=== PATIENT | female | born 1990 | race Caucasian/White ===

== ENCOUNTER 2019-08-30 10:42 | Outpatient (CLI) | payer BC ==
[2019-08-30] MEDS ORDERED: ALPR0.25 PO (11:00)
[2019-08-30 11:36] LABS: BASOPHILS # (AUTO) 0.03 x10^3/uL (0-0.1); BASOPHILS % (AUTO) 0 % (0-1); EOSINOPHILS # (AUTO) 0.08 x10^3/uL (0-0.4); EOSINOPHILS % (AUTO) 1 % (1-7); LYMPHOCYTES # (AUTO) 2.17 x10^3/uL (1-3.4); LYMPHOCYTES % (AUTO) 23 % (22-44); MD NO; MEAN CORPUSCULAR HEMOGLOBIN 28.4 pg (27.0-34.8); MEAN CORPUSCULAR VOLUME 88.7 fL (80-100); MEAN PLATELET VOLUME 8.3 fL (7.4-10.4); MONOCYTES # (AUTO) 0.58 x10^3/uL (0.2-0.8); MONOCYTES % (AUTO) 6 % (2-9); NEUTROPHILS # (AUTO) 6.47 x10^3/uL (1.8-6.8); NEUTROPHILS % (AUTO) 69 % (42-75); PLATELET COUNT 325 x10^3/uL (130-400); RED BLOOD COUNT 4.68 x10^6/uL (3.82-5.3)
[2019-08-30 11:48] LABS: INTERNATIONAL NORMALIZED RATIO 0.94 (0.93-1.1)
[2019-08-30 13:10] LABS: ALBUMIN 3.8 g/dL (3.4-5.0); ANION GAP 4 mmol/L (5-15); CHLORIDE 110 mmol/L (98-107)
[2019-08-30 13:14] LABS: ALANINE AMINOTRANSFERASE 17 U/L (12-78); ALKALINE PHOSPHATASE 84 U/L (45-117); BILIRUBIN,TOTAL 0.3 mg/dL (0.2-1.0); CREATININE 0.88 mg/dL (0.55-1.02); TOTAL PROTEIN 7.9 g/dL (6.4-8.2)
== END 2019-08-30 23:59 | disposition home or self-care (01) ==
LOC: STAR 10:42
PROVIDERS: ATTEND Neurological Surgery
DX: Z01.818 Encounter for other preprocedural examination (principal); D35.2 Benign neoplasm of pituitary gland
CPT/HCPCS: 36415; 80053; 85025; 85610; 85730; 93005

== ENCOUNTER 2019-09-08 05:39 | Inpatient (IN) | payer BC ==
[~2019-09-08] VITALS: Ht 157.5 cm; Wt 92.7 kg
[~2019-09-08 05:39] MED LIST: ALPR0.25 PO
[2019-09-08] MEDS ORDERED: LACTATED RINGERS 1,000 ML IV SCH (06:05)
[2019-09-08 06:08] VITALS: BP 114/82
[2019-09-08] MEDS ORDERED: FENTANYL PF 250 MCG/5ML ONE ×3 (06:09→08:57)
[2019-09-08] MEDS ORDERED: PROPOFOL 100 ML ONE (06:12)
[2019-09-08] MEDS ORDERED: morphine SULFATE 10 MG/ML, 1ML IVPush PRN (06:30)
[2019-09-08] MEDS ORDERED: hydrALAzine 20 MG/ML, 1ML IV PRN (06:30)
[2019-09-08] MEDS ORDERED: HALOPERIDOL 5 MG/ML IV PRN (06:30)
[2019-09-08] MEDS ORDERED: MEPERIDINE/PF 25MG/0.5ML IVPush PRN (06:30)
[2019-09-08] MEDS ORDERED: HYDROmorphone 1 MG/ML, 1ML INJ IVPush PRN (06:30)
[2019-09-08] MEDS ORDERED: PROMETHAZINE 25 MG/ML, 1ML IVPush PRN (06:30)
[2019-09-08] MEDS ORDERED: LABETALOL 5MG/ML, 20ML IV PRN (06:30)
[2019-09-08] MEDS ORDERED: CHLORHEXIDINE 15 ML UDC MM ONE (06:30)
[2019-09-08] MEDS ORDERED: OXYcodone 5 MG/5 ML ORAL.SOL UDC PO PRN (06:30)
[2019-09-08 06:33] LABS: HCG UR SG 1.027 (1.003-1.030)
[2019-09-08] MEDS ORDERED: FUROSEMIDE 20 MG/2 ML ONE (06:39)
[2019-09-08] MEDS ORDERED: MANNITOL PMX 20% 500 ML ONE (06:39)
[2019-09-08] MEDS ORDERED: GADOTERATE 7.5 MMOL/15 ML SYR ONE (06:54)
[2019-09-08] MEDS ORDERED: BACITRACIN 50,000 UNIT ONE (07:33)
[2019-09-08] MEDS ORDERED: THROMBIN 5,000 UNIT VIAL TP ONE (07:33)
[2019-09-08] MEDS ORDERED: FLUORESCEIN SODIUM 500 MG/5 ML ONE (07:33)
[2019-09-08] MEDS ORDERED: OXYMETAZOLINE NASAL SPRAY 0.05%, 15ML ONE (07:33)
[2019-09-08] MEDS ORDERED: LIDOCAINE 1%-EPI 1:100K, 20ML ONE (07:33)
[2019-09-08] MEDS ORDERED: BACITRACIN OINT 500U/GM, 15 GM ONE (07:33)
[2019-09-08] MEDS ORDERED: EPINEPHRINE TOPICAL SOLN 1 MG/ML, 30ML ONE (07:33)
[2019-09-08] MEDS ORDERED: PROPOFOL 10 MG/ML, 20ML ONE (08:38)
[2019-09-08] MEDS ORDERED: GLYCOPYRROLATE 0.2MG/1ML, 5ML ONE (08:38)
[2019-09-08] MEDS ORDERED: ROCURONIUM 10MG/ML,5ML ONE ×2 (08:38→09:39)
[2019-09-08] MEDS ORDERED: ONDANSETRON 2MG/ML, 2ML ONE (08:38)
[2019-09-08] MEDS ORDERED: DEXAMETHASONE 4 MG/ML, 1ML ONE (08:38)
[2019-09-08] MEDS ORDERED: NEOSTIGMINE 1 MG/ML, 10ML ONE (08:38)
[2019-09-08] MEDS ORDERED: CEFAZOLIN 1,000 MG ONE (08:38)
[2019-09-08] MEDS ORDERED: METOPROLOL 1 MG/ML, 5ML ONE (08:57)
[2019-09-08] MEDS ORDERED: LIDOCAINE 1%-EPI 1:100K, 20ML INFIL ONE (08:59)
[2019-09-08] MEDS ORDERED: FENTANYL PF 100 MCG/2ML ONE (10:58)
[2019-09-08] MEDS ORDERED: OXYcodone 5 MG/5 ML ORAL.SOL UDC ONE ×2 (10:58→11:00)
[2019-09-08] MEDS: FENTANYL PF 100 MCG/2ML IV PRN ×2 (11:00→11:05)
[2019-09-08] MEDS ORDERED: LORazepam 2 MG/ML, 1ML ONE (11:19)
[2019-09-08] MEDS ORDERED: LORazepam 2 MG/ML, 1ML IVPush PRN ×2 (11:30)
[2019-09-08] MEDS ORDERED: CEFTRIAXONE 1,000 MG IM SCH (12:00)
[2019-09-08] MEDS: POTASSIUM CHLORIDE 40 MEQ in SODIUM CHLORIDE 0.9% 1,000 ML IV SCH (12:21)
[2019-09-08] MEDS: CEFTRIAXONE PMX 1GM/50ML 50 ML IV SCH (12:21)
[2019-09-08 13:05] LABS: CHLORIDE 110 mmol/L (98-107)
[2019-09-08 13:12] LABS: ANION GAP 7 mmol/L (5-15); CALCIUM 8.2 mg/dL (8.5-10.1); CREATININE 0.86 mg/dL (0.55-1.02)
[2019-09-08] MEDS: OXYcodone/APAP 5/325MG TABLET PO PRN ×3 (14:18→19:58)
[2019-09-08] MEDS: HYDROCORTISONE 20 MG TABLET PO SCH (16:14)
[2019-09-08] MEDS ORDERED: ONDANSETRON 2MG/ML, 2ML IVPush PRN (18:00)
[2019-09-08] MEDS ORDERED: MORPHINE SULFATE 4 MG/ML, 1ML IVPush PRN (18:00)
[2019-09-08 23:07] LABS: ANION GAP 11 mmol/L (5-15); CALCIUM 8.4 mg/dL (8.5-10.1); CHLORIDE 108 mmol/L (98-107); CREATININE 0.95 mg/dL (0.55-1.02)
[2019-09-09 04:00] VITALS: BP 128/74
[2019-09-09] MEDS: OXYcodone/APAP 5/325MG TABLET PO PRN ×3 (05:04→17:30)
[2019-09-09] MEDS: POTASSIUM CHLORIDE 40 MEQ in SODIUM CHLORIDE 0.9% 1,000 ML IV SCH ×2 (05:58→19:08)
[2019-09-09] MEDS: HYDROCORTISONE 20 MG TABLET PO SCH ×2 (06:35→18:06)
[2019-09-09 06:50] LABS: ALBUMIN 2.8 g/dL (3.4-5.0); ANION GAP 8 mmol/L (5-15); CALCIUM 8.5 mg/dL (8.5-10.1); CHLORIDE 110 mmol/L (98-107); MEAN CORPUSCULAR HEMOGLOBIN 28.8 pg (27.0-34.8); MEAN CORPUSCULAR HGB CONC 32.2 g/dL (32.4-35.8); MEAN CORPUSCULAR VOLUME 89.5 fL (80-100); MEAN PLATELET VOLUME 8.2 fL (7.4-10.4); PLATELET COUNT 348 x10^3/uL (130-400); RED BLOOD COUNT 4.26 x10^6/uL (3.82-5.3); RED CELL DISTRIBUTION WIDTH 12.9 % (9.6-15.2)
[2019-09-09 06:54] LABS: ALANINE AMINOTRANSFERASE 18 U/L (12-78); ALKALINE PHOSPHATASE 71 U/L (45-117); BILIRUBIN,TOTAL 0.4 mg/dL (0.2-1.0); TOTAL PROTEIN 6.6 g/dL (6.4-8.2)
[2019-09-09 07:40] LABS: MD YES
[2019-09-09 07:41] LABS: <RBC MORPHOLOGY> NORMAL; LYMPH#(MANUAL) 1.21 x10^3/uL (1-3.4); LYMPHS% (MANUAL) 6 % (22-44); MONOS% (MANUAL) 3 % (2-9); SEG#(MANUAL) 18.29 x10^3/uL (1.8-6.8); SEGS% (MANUAL) 91 % (42-75)
[2019-09-09 07:42] LABS: <PLATELET ESTIMATE> ADEQUATE; <PLT MORPHOLOGY> NORMAL PLT MORPH
[2019-09-09 10:13] VITALS: BP 112/77
[2019-09-09 14:29] VITALS: BP 93/59
[2019-09-09] MEDS: CEFTRIAXONE PMX 1GM/50ML 50 ML IV SCH (14:47)
[2019-09-09 18:30] VITALS: BP 178/68
[2019-09-09 19:57] VITALS: BP 178/68
[2019-09-10] VITALS: BP 117/79
[2019-09-10] MEDS: OXYcodone/APAP 5/325MG TABLET PO PRN ×4 (00:21→12:17)
[2019-09-10] MEDS: POTASSIUM CHLORIDE 40 MEQ in SODIUM CHLORIDE 0.9% 1,000 ML IV SCH (06:12)
[2019-09-10 07:21] VITALS: BP 115/79
[2019-09-10] MEDS ORDERED: HYDROCORTISONE 5 MG TABLET ONE (08:12)
[2019-09-10] MEDS: HYDROCORTISONE 20 MG TABLET PO SCH (08:36)
[2019-09-10] MEDS: CEFTRIAXONE PMX 1GM/50ML 50 ML IV SCH (12:07)
[2019-09-10 12:33] VITALS: BP 115/81
== END 2019-09-10 14:39 | disposition home or self-care (01) | DRG 615 ==
LOC: ORIP 05:39 → EDSTATUS 07:30 → CCU 11:51 → 4WST 09-09 10:04
PROVIDERS: ADMIT Neurological Surgery; ATTEND Neurological Surgery
PROC: 0GT Endocrine System, Resection (ICD-10-PCS; principal; 2019-09-08 07:30)
DX: D35.2 Benign neoplasm of pituitary gland (principal); G43.909 Migraine, unspecified, not intractable, without status migrainosus; F32.9 Major depressive disorder, single episode, unspecified; F43.10 Post-traumatic stress disorder, unspecified; Z20.828 Contact with and (suspected) exposure to other viral communicable diseases; K21.9 Gastro-esophageal reflux disease without esophagitis; Z82.3 Family history of stroke; Z80.9 Family history of malignant neoplasm, unspecified; Z79.899 Other long term (current) drug therapy
CPT/HCPCS: 36415; 70450; 70552; 80048; 80053; 81025; 83735; 84100; 84439; 84443; 84481; 85025; 86850; 86900; 87081; 87635; 88305; 88341; 88342; 93005; G0378; J0690; J0696; J1100; J2405; J2704; J2710; J3010; J3480; J3490; A9575; J1940; J2060; J7030; J7120